=== PATIENT | female | born 1980 | race Caucasian/White ===

== ENCOUNTER 2018-01-17 12:39 | Emergency (ER) | END 2018-01-17 15:06 | disposition home or self-care (01) ==

== ENCOUNTER 2018-05-07 22:03 | Outpatient (CLI) | END 2018-05-08 02:55 | disposition home or self-care (01) ==

== ENCOUNTER 2018-07-20 01:47 | Inpatient (IN) | END 2018-07-22 16:25 | disposition home or self-care (01) | DRG 775 ==